=== PATIENT | male | born 1970 | race Hispanic/Latino ===

== ENCOUNTER 2019-02-03 08:28 | Outpatient (CLI) | payer OTHER ==
[2019-02-03] MEDS ORDERED: Gadobenate Dimeglumine 529 MG/1 ML (20ML VIAL) ONE (09:00)
[2019-02-03 09:13] LABS: Estimated GFR-MDRD - POC Greater than 90
--- NOTE | 2019-02-03 10:19 | MRI ---
BRAIN MRI WITH AND WITHOUT CONTRAST: Date: 02/03/19 No prior imaging for comparison. INDICATION: Post-traumatic hemorrhage of left cerebrum. FINDINGS: There is a nidus of susceptibility abnormality overlying and involving the left frontoparietal cortex . Underlying gliosis and/or edema is present and there is cortical effacement which may be on the bas is of post-traumatic encephalomalacia in light of the patient's history. There is a thin linear extra -axial FLAIR hyperintense signal, a few millimeters in thickness, compatible with a small volume of o verlying extra-axial hemorrhage at the left temporoparietal convexity. Presumed post-traumatic signal abnormality does extend to involve the anterior to mid left temporal lobe, laterally, likely post-tr aumatic encephalomalacia. No acute territorial infarction, ventriculomegaly, or midline shift. No pat hologic intra-axial enhancement. IMPRESSION: Signal abnormality involving the overlying left parietal convexity, as well as involving the underlyi ng left temporal lobe in keeping with post-traumatic sequelae, per clinical history. There is a minut e volume of overlying extra-axial hemorrhage of this region, as well. Recommend follow-up with noncontrast CT head on a short-term basis to confirm resolution. POS: [facility]
== END 2019-02-03 08:29 | disposition home or self-care (01) ==
LOC: SCSMRI 08:28
PROVIDERS: ATTEND Neurological Surgery
DX: S06.350A Traumatic hemorrhage of left cerebrum without loss of consciousness, initial encounter (principal)
CPT/HCPCS: 70553; 82565; A9577

== ENCOUNTER 2025-03-13 12:36 | Inpatient (IN) | payer BC ==
[~2025-03-13 12:36] MED LIST: Iopamidol-370 76% 500 ML MDV (1 ML CHARGE) ONE
[2025-03-13] MEDS ORDERED: Tranexamic Acid 1,000 MG/10 ML VIAL ONE (13:03)
[2025-03-13 13:23] LABS: #Basophils 0.07 10x3/uL (0.0-0.2); #Eosinophils 0.04 10x3/uL (0.0-0.7); #Monocytes 0.74 10x3/uL (0.11-0.59); #Neutrophils 11.92 10x3/uL (1.40-6.50); %Basophils 0.5 % (0.0-1.0); %Eosinophils 0.3 % (0.0-10.0); %Lymphocytes 8.2 % (21.0-51.0); %Monocytes 5.3 % (0.0-10.0); %Neutrophils 85.2 % (42.0-75.0); Hematocrit 38.1 % (42.0-52.0); Hemoglobin 13.0 g/dL (14.0-18.0); Mean Corpuscular Hemoglobin 30.4 pg (27.0-31.0); Mean Corpuscular Volume 89.0 fL (78.0-98.0); Platelet Count 157 10x3/uL (130-400); Red Blood Cell (RBC) Count 4.28 mill/uL (4.70-6.10); White Blood Cell (WBC) Count 13.98 10x3/uL (4.8-10.8)
[2025-03-13 13:43] LABS: ALT (SGPT) 17 U/L (Less than 45); AST (SGOT) 22 U/L (11-34); Albumin 2.9 g/dL (3.1-4.5); Alkaline Phosphatase 111 U/L (40-110); Anion Gap 13 mmol/L (10-20); BUN (Urea Nitrogen) 18 mg/dL (8.4-25.7); Bilirubin, Total 0.5 mg/dL (0.3-1.2); Calc. Creatinine Clearance 0 mL/min (70-130); Calcium 7.6 mg/dL (7.8-10.44); Carbon Dioxide 22 mmol/L (22-29); Chloride 102 mmol/L (98-107); Globulin 2.8 g/dL (2.4-3.5); Glucose 430 mg/dL (70-105); Potassium 4.4 mmol/L (3.5-5.1); Sodium 133 mmol/L (136-145)
[2025-03-13 13:59] LABS: INR-International Normal Ratio 1.2; PTT 23.4 sec (22.9-36.1); Prothrombin Time 14.8 sec (12.0-14.7)
[2025-03-13] MEDS ORDERED: Glucagon 1 MG/ML KIT IM PRN (14:44)
[2025-03-13] MEDS ORDERED: Dextrose 50% Abboject 50 ML SYRINGE SLOW IVP PRN (14:44)
[2025-03-13] MEDS ORDERED: Ondansetron PF 4 MG/2 ML Vial IVP PRN (14:55)
[2025-03-13] MEDS ORDERED: Acetaminophen 325 MG TAB PO PRN (14:55)
[2025-03-13] MEDS ORDERED: TETANUS AND DIPHTHERIA TOX/PF 0.5 ML DISP.SYRIN IM SCH (15:30)
[2025-03-13 15:56] LABS: Magnesium 1.9 mg/dL (1.6-2.6)
[2025-03-13 17:29] VITALS: BMI 27.9
[2025-03-13] MEDS: Acetaminophen 325 MG TAB PO SCH (18:15)
[2025-03-13] MEDS: Gabapentin 300 MG CAP PO SCH (18:15)
[2025-03-13] MEDS: TETANUS, DIPHTHERIA TOX,ADULT (TDVAX) 0.5 ML VIAL IM ONE (19:37)
[2025-03-13] MEDS: Senokot 8.6 MG TAB PO SCH (20:52)
[2025-03-14 06:12] LABS: #Basophils 0.07 10x3/uL (0.0-0.2); #Eosinophils 0.09 10x3/uL (0.0-0.7); #Monocytes 0.79 10x3/uL (0.11-0.59); #Neutrophils 5.76 10x3/uL (1.40-6.50); %Basophils 0.8 % (0.0-1.0); %Eosinophils 1.1 % (0.0-10.0); %Lymphocytes 21.2 % (21.0-51.0); %Monocytes 9.3 % (0.0-10.0); %Neutrophils 67.4 % (42.0-75.0); Hematocrit 33.9 % (42.0-52.0); Hemoglobin 11.6 g/dL (14.0-18.0); Mean Corpuscular Hemoglobin 30.1 pg (27.0-31.0); Mean Corpuscular Volume 88.1 fL (78.0-98.0); Platelet Count 152 10x3/uL (130-400); Red Blood Cell (RBC) Count 3.85 mill/uL (4.70-6.10); White Blood Cell (WBC) Count 8.54 10x3/uL (4.8-10.8)
[2025-03-14 06:27] LABS: INR-International Normal Ratio 1.1; PTT 25.8 sec (22.9-36.1); Prothrombin Time 14.5 sec (12.0-14.7)
[2025-03-14 06:35] LABS: ALT (SGPT) 14 U/L (Less than 45); AST (SGOT) 15 U/L (11-34); Albumin 2.7 g/dL (3.1-4.5); Alkaline Phosphatase 77 U/L (40-110); Anion Gap 10 mmol/L (10-20); BUN (Urea Nitrogen) 11 mg/dL (8.4-25.7); Bilirubin, Total 0.5 mg/dL (0.3-1.2); Calc. Creatinine Clearance 130 mL/min (70-130); Calcium 7.5 mg/dL (7.8-10.44); Carbon Dioxide 23 mmol/L (22-29); Chloride 106 mmol/L (98-107); Globulin 2.7 g/dL (2.4-3.5); Glucose 180 mg/dL (70-105); Potassium 3.4 mmol/L (3.5-5.1); Sodium 136 mmol/L (136-145)
[2025-03-14] MEDS ORDERED: CEFAZOLIN 2 GM VIAL ONE (12:50)
[2025-03-14] MEDS ORDERED: Lidocaine 1% PF 5 ML VIAL ONE (14:00)
[2025-03-14] MEDS ORDERED: fentaNYL PF 100 MCG/2 ML SYRINGE ONE (14:00)
[2025-03-14] MEDS ORDERED: PROPOFOL 20 ML ONE (14:00)
[2025-03-14] MEDS ORDERED: Ondansetron PF 4 MG/2 ML Vial ONE (14:52)
[2025-03-14] MEDS ORDERED: HYDROmorphone 2 MG/ML VIAL ONE (15:07)
[2025-03-14 22:59] LABS: Glucose 502 mg/dL (70-105)
[2025-03-15] MEDS: oxyCODONE 5 MG TAB PO PRN (01:50)
[2025-03-15 05:42] LABS: ALT (SGPT) 11 U/L (Less than 45); AST (SGOT) 46 U/L (11-34); Albumin 3.0 g/dL (3.1-4.5); Alkaline Phosphatase 89 U/L (40-110); Anion Gap 10 mmol/L (10-20); BUN (Urea Nitrogen) 11 mg/dL (8.4-25.7); Bilirubin, Total 0.6 mg/dL (0.3-1.2); Calc. Creatinine Clearance 137 mL/min (70-130); Calcium 8.2 mg/dL (7.8-10.44); Carbon Dioxide 26 mmol/L (22-29); Chloride 103 mmol/L (98-107); Globulin 3.2 g/dL (2.4-3.5); Glucose 210 mg/dL (70-105); Potassium 3.9 mmol/L (3.5-5.1); Sodium 135 mmol/L (136-145)
[2025-03-15 05:44] LABS: #Basophils 0.05 10x3/uL (0.0-0.2); #Eosinophils Less than 0.03 10x3/uL (0.0-0.7); #Monocytes 1.07 10x3/uL (0.11-0.59); #Neutrophils 7.45 10x3/uL (1.40-6.50); %Basophils 0.5 % (0.0-1.0); %Eosinophils 0.1 % (0.0-10.0); %Lymphocytes 15.1 % (21.0-51.0); %Monocytes 10.6 % (0.0-10.0); %Neutrophils 73.4 % (42.0-75.0); Hematocrit 34.5 % (42.0-52.0); Hemoglobin 11.6 g/dL (14.0-18.0); Mean Corpuscular Hemoglobin 29.9 pg (27.0-31.0); Mean Corpuscular Volume 88.9 fL (78.0-98.0); Platelet Count 158 10x3/uL (130-400); Red Blood Cell (RBC) Count 3.88 mill/uL (4.70-6.10); White Blood Cell (WBC) Count 10.14 10x3/uL (4.8-10.8)
[2025-03-15] MEDS: Enoxaparin 40 MG (0.4 mL) SYRINGE SC SCH (08:01)
[2025-03-15] MEDS: CEFAZOLIN 2 GM VIAL ONE (11:06)
[2025-03-15 15:41] VITALS: BP 116/72; TEMP 98.1
[2025-03-16] MEDS ORDERED: FLU (Fluarix Triv) 25-26 (6MOS UP)/PF 45 MCG/0.5 ML Syringe IM ONE (18:15)
[2025-03-16] MEDS ORDERED: PNEUMOC 20-VAL CONJ-DIP CRM/PF 0.5 ML SYRINGE IM ONE (18:15)
== END 2025-03-15 17:45 | disposition home or self-care (01) | DRG 493 ==
LOC: ERS 12:36 → CCU 15:07 → SURG A 20:29
PROVIDERS: ADMIT Surgery; ATTEND Surgery
PROC: 0SBF0ZZ Excision of Right Ankle Joint, Open Approach (ICD-10-PCS; principal; 2025-03-13)
PROC: 3E02340 Introduction of Influenza Vaccine into Muscle, Percutaneous Approach (ICD-10-PCS; 2025-03-13)
PROC: 3E03329 Introduction of Other Anti-infective into Peripheral Vein, Percutaneous Approach (ICD-10-PCS; 2025-03-13)
PROC: 0KQS0ZZ Repair Right Lower Leg Muscle, Open Approach (ICD-10-PCS; 2025-03-14)
DX: S96.121A Laceration of muscle and tendon of long extensor muscle of toe at ankle and foot level, right foot, initial encounter (principal); D62 Acute posthemorrhagic anemia; S91.011A Laceration without foreign body, right ankle, initial encounter; K80.20 Calculus of gallbladder without cholecystitis without obstruction; E11.9 Type 2 diabetes mellitus without complications; F17.210 Nicotine dependence, cigarettes, uncomplicated; E78.5 Hyperlipidemia, unspecified; I25.10 Atherosclerotic heart disease of native coronary artery without angina pectoris; I10 Essential (primary) hypertension; Z79.82 Long term (current) use of aspirin; Z79.899 Other long term (current) drug therapy; Z79.84 Long term (current) use of oral hypoglycemic drugs; Z23 Encounter for immunization; W29.3XXA Contact with powered garden and outdoor hand tools and machinery, initial encounter; Y93.H2 Activity, gardening and landscaping
CPT/HCPCS: 36415; 36416; 75635; 80053; 83036; 83735; 84100; 85025; 85610; 85730; 86850; 86900; 86901; 96365; G0390; J1100; J1171; J1650; J1815; J2704; J7030; Q9967